=== PATIENT | female | born 1945 | race Caucasian/White ===

== ENCOUNTER → 2024-07-25 | Outpatient (CLI) | payer MEDICARE, BC, SELFPAY ==
--- NOTE | 2024-07-25 15:45 | XR_ITS ---
Examination: Left knee 2 views Technique one AP lateral left knee 2 views Exam date and time: July 25, 2024 1647 hrs. Indications: Patient fell last week with injury to the left knee, left knee pain. Findings: Prominent osteopenia Moderate tricompartment osteoarthritis, most prominent medial patellofemoral joints No fracture Impression: Moderate tricompartment osteoarthritis
--- NOTE | 2024-07-25 15:45 | XR_ITS ---
Examination:Left hip AP, lateral, AP pelvis 3 views Technique: Hip AP lateral, AP pelvis, 3 views Exam date and time:July 23, 2024 1636 hrs. Indications: Patient fell last week with injury to the left hip, left hip pain. Findings: Moderate osteopenia. Relative fracture or dislocation Right hip bones of the pelvis intact Impression: No acute hip or pelvic fracture.
--- NOTE | 2024-07-25 15:47 | XR_ITS ---
Examination: Bilateral knees, standing AP single view Technique: Standing AP bilateral knees, standing single view Exam date and time: July 24, 2024 at 1636 hrs. Indications: Patient fell last week with injury to left knee, knee pain. Findings: Significant osteopenia No fracture or dislocation involving either knee Mild to moderate narrowing medial joint spaces bilaterally Impression: No fracture or dislocation involving either knee
== END | disposition home or self-care (01) ==
PROVIDERS: PCP Family Medicine; Referring Provider Orthopaedic Surgery; Visit Provider Orthopaedic Surgery
DX: S79.912A Unspecified injury of left hip, initial encounter (principal); S81.002A Unspecified open wound, left knee, initial encounter; W19.XXXA Unspecified fall, initial encounter; M17.12 Unilateral primary osteoarthritis, left knee
CPT/HCPCS: 73502; 73560; 73565

== ENCOUNTER → 2024-07-28 | Outpatient (CLI) | payer MEDICARE, BC, SELFPAY ==
--- NOTE | 2024-07-28 08:30 | XR_ITS ---
Exam: MRI knee without contrast, left Date and time of exam: July 28, 2024 0930 hours INDICATIONS: Medial knee pain joint locking stiffness swelling instability beginning one week ago after a fall with injury to the knee Technique: Multiple axial, coronal, and sagittal sections on the knee have been obtained. T2-Weighted sagittal, fat-suppressed images, TR 3,500, TE 62, T2 weighted coronal fat-saturated images, TR 3,500, TE 62 Proton density sagittal sections, TR 1800, TE 31. T-1 weighted coronal images, TR 524, TE 13.0 Findings: Medial meniscus anterior horn intact. Medial meniscus, body complex tears including oblique linear tear communicating inferior articular surface. Posterior horn medial meniscus multiple complex tears including oblique linear tears communicating inferior articular surface. Lateral meniscus anterior horn horizontal linear tear Lateral meniscus, body is intact Posterior horn lateral meniscus is intact Anterior cruciate ligament moderate sprain Posterior cruciate ligament appears intact. Knee effusion is large with suprapatellar joint like. Partial tear of the patellar tendon at its tibial insertion Inflammatory change or fracture of Hoffa's fat pad is not seen. Medial patellar facet demonstrates severe thinning. Lateral patellar facet cartilage demonstrates severe thinning. Trochlear cartilage demonstrates severe thinning. Marrow signal adequate. Medial collateral ligament appears intact. No meniscocapsular separation is seen. Illiotibial band and fibular collateral ligament are intact. Biceps femoris tendons appear intact. Medial femoral condylar articular cartilage demonstrates moderate thinning. Lateral femoral condylar articular cartilage demonstratesmoderate thinning. Tibial plateau cartilage demonstrates moderate thinning. Impression: Medial lateral meniscus tears as above Moderate sprain anterior cruciate ligament
== END | disposition home or self-care (01) ==
LOC: SMRI 08:13
PROVIDERS: PCP Family Medicine; Referring Provider Orthopaedic Surgery; Visit Provider Orthopaedic Surgery
DX: S83.282A Other tear of lateral meniscus, current injury, left knee, initial encounter (principal); S83.512A Sprain of anterior cruciate ligament of left knee, initial encounter; W19.XXXA Unspecified fall, initial encounter
CPT/HCPCS: 73721